=== PATIENT | male | born 1985 | race Caucasian/White ===

== ENCOUNTER 2019-06-09 14:41 | Emergency (ER) | payer OTHER ==
[~2019-06-09] VITALS: Ht 167.6 cm; Wt 110.7 kg
[2019-06-09] MEDS ORDERED: KEFLEX500 M1 PO (15:47)
[2019-06-09] MEDS ORDERED: MOBIC15 MG PO (15:47)
[2019-06-09 16:32] VITALS: BP 130/78
== END 2019-06-09 16:33 | disposition home or self-care (01) ==
LOC: M.ERS 14:41
DX: S62.660A Nondisplaced fracture of distal phalanx of right index finger, initial encounter for closed fracture (principal); S62.662A Nondisplaced fracture of distal phalanx of right middle finger, initial encounter for closed fracture; S62.664A Nondisplaced fracture of distal phalanx of right ring finger, initial encounter for closed fracture; W23.0XXA Caught, crushed, jammed, or pinched between moving objects, initial encounter; Y93.89 Activity, other specified; Y92.89 Other specified places as the place of occurrence of the external cause; Y99.8 Other external cause status